=== PATIENT | male | born 1995 | race Caucasian/White ===

== ENCOUNTER 2019-12-26 18:41 | Emergency (ER) | payer OTHER ==
[~2019-12-26] VITALS: Ht 193 cm; Wt 90.9 kg
[2019-12-26 19:04] VITALS: BP 140/62
== END 2019-12-26 19:17 | disposition home or self-care (01) ==
LOC: M ED 18:41
DX: Z11.59 Encounter for screening for other viral diseases (principal); Z20.828 Contact with and (suspected) exposure to other viral communicable diseases
CPT/HCPCS: 99283; U0003